=== PATIENT | female | born 1975 | race Caucasian/White ===

== ENCOUNTER 2018-06-29 22:36 | Emergency (ER) | payer SELFPAY ==
[~2018-06-29] VITALS: Ht 149.9 cm; Wt 54.4 kg
[2018-06-29 22:44] VITALS: Ht 149.9 cm; Wt 54.4 kg
[2018-06-29 23:26] LABS: BASOPHIL % 0.1 % (0-2)
[2018-06-29 23:28] LABS: PLATELET COUNT 88 x10^3mcL (130-400); RED CELL DISTRIBUTION WIDTH 18.9 % (11.5-14.5)
[2018-06-30 00:05] LABS: CALCIUM 8.7 mg/dL (8.5-10.1); CARBON DIOXIDE 25.4 mmol/L (21-32); CHLORIDE SERUM 97 mmol/L (98-107); CREATININE SERUM 0.6 mg/dL (0.6-1.0); GFR1 > 60 mL/min; GLUCOSE SERUM 80 mg/dL (74-106); POTASSIUM SERUM 3.6 mmol/L (3.5-5.1); SODIUM SERUM 133 mmol/L (136-145)
[2018-06-30 00:08] LABS: ALKALINE PHOSPHATASE 155 U/L (46-116); ALT/SGPT 32 U/L (14-59); AST/SGOT 46 U/L (15-37); BILIRUBIN TOTAL 1.9 mg/dL (0.20-1.00)
[2018-06-30 00:09] LABS: ALBUMIN 3.1 g/dL (3.4-5.0); TOTAL PROTEIN, SERUM 8.5 g/dL (6.4-8.2)
[2018-06-30 00:42] LABS: AMPHETAMINE QUAL UR NONE DETECTED (See below)
[2018-06-30 02:33] VITALS: BP 142/80
== END 2018-06-30 02:33 ==
LOC: ED 22:36
PROVIDERS: Specialist
DX: S42.002A Fracture of unspecified part of left clavicle, initial encounter for closed fracture (principal); X58.XXXA Exposure to other specified factors, initial encounter; Y93.89 Activity, other specified; Y92.89 Other specified places as the place of occurrence of the external cause; Y99.8 Other external cause status; F31.9 Bipolar disorder, unspecified; Z90.710 Acquired absence of both cervix and uterus
CPT/HCPCS: 36415; G0480